=== PATIENT | female | born 2000 ===

== ENCOUNTER 2020-11-02 15:43 | Observation (INO) ==
[2020-11-02] MEDS ORDERED: ACETAMINOPHEN 325 MG TABLET PO PRN (16:30)
[2020-11-02] MEDS ORDERED: ONDANSETRON 4 MG/2 ML VIAL IV PRN (16:30)
[2020-11-02] MEDS ORDERED: LEVOFLOXACIN INJ 750 MG in PREMIX 1 EACH IV STA (16:39)
[2020-11-02] MEDS ORDERED: LEVOFLOXACIN INJ 150 ML IV ONE (16:45)
[2020-11-02] MEDS: LEVOFLOXACIN INJ 750 MG in PREMIX 1 EACH IV SCH ×2 (16:50→16:53)
[2020-11-02] MEDS: LACTATED RINGERS 1,000 ML IV SCH (18:25)
[2020-11-02 18:55] LABS: Basophils % 0.3 % (0.0-0.8); Eosinophils % 0.4 % (0.00-10.9); Hematocrit 38.2 VOL% (35.7-47.0); Hemoglobin 12.1 GM/DL (12.0-16.0); Immature Granulocytes % 0.4 %; Immature Granulocytes Absolute 0.04 #; Lymphocytes # 1.8 10*3/uL (1.4-4.0); Mean Corpuscular HGB Conc 31.7 GM/DL (32-36); Mean Corpuscular Volume 85.5 FL (87-102); Monocytes % 7.8 % (1.7-12.7); Neutrophils % 74.1 % (38.7-73.9); Platelet Count 385 T/CUMM (130-400); Red Blood Count 4.47 MC/CUMM (3.8-5.5); Red Cell Distribution Width 13.1 % (9.3-17.3); White Blood Count 10.3 T/CUMM (4-12)
[2020-11-03] MEDS: LACTATED RINGERS 1,000 ML IV SCH ×4 (01:12→22:22)
[2020-11-03 06:25] LABS: Albumin 2.6 G/DL (3.4-5.0); Bilirubin,Total 0.9 MG/DL (0.2-1.0); Calcium 8.7 MG/DL (8.5-10.1); Osmolality,Calculated 271.7 MOS/KG (273-304); Potassium 4.1 MMOL/L (3.5-5.1)
[2020-11-03] MEDS ORDERED: INDOCYANINE GREEN 25 MG VIAL IV ONE (07:09)
[2020-11-03] MEDS ORDERED: SCOPOLAMINE 1.5 MG PATCH TRANSDERM ONE (07:51)
[2020-11-03] MEDS ORDERED: ACETAMINOPHEN 500 MG TABLET PO ONE (07:51)
[2020-11-03] MEDS ORDERED: FAMOTIDINE 20 MG TABLET PO ONE (07:53)
[2020-11-03] MEDS: PANTOPRAZOLE 40 MG TABLET PO SCH (08:17)
[2020-11-03] MEDS ORDERED: MIDAZOLAM 2 MG/2 ML VIAL ONE (08:29)
[2020-11-03] MEDS ORDERED: propofoL 200 MG/20 ML VIAL IV ONE (08:29)
[2020-11-03] MEDS ORDERED: SEVOFLURANE 1 UNIT/15 MINUTE INH ONE (08:29)
[2020-11-03] MEDS ORDERED: ROCURONIUM 50 MG/5 ML VIAL IV ONE (08:29)
[2020-11-03] MEDS ORDERED: LIDOCAINE 2% 5 ML VIAL ONE (08:29)
[2020-11-03] MEDS ORDERED: fentaNYL 100 MCG/2 ML VIAL ONE ×2 (08:29→10:32)
[2020-11-03] MEDS ORDERED: BUPIVACAINE MPF 0.25% 30 ML VIAL ONE (09:14)
[2020-11-03] MEDS ORDERED: TISSUE ADHESIVE 1 EACH APPLICATOR TOP ONE (09:14)
[2020-11-03] MEDS ORDERED: LIDOCAINE 1%/EPI INJ 20 ML VIAL ONE (09:14)
[2020-11-03] MEDS ORDERED: ONDANSETRON 4 MG/2 ML VIAL ONE (10:05)
[2020-11-03] MEDS ORDERED: KETOROLAC 30 MG/1 ML VIAL ONE (10:05)
[2020-11-03] MEDS ORDERED: GLYCOPYRROLATE 0.4 MG/2 ML VIAL ONE (10:25)
[2020-11-03] MEDS ORDERED: NEOSTIGMINE 10 MG/10 ML VIAL ONE (10:25)
[2020-11-03] MEDS ORDERED: LACTATED RINGERS 1,000 ML IV ONE (10:37)
[2020-11-03] MEDS ORDERED: MEPERIDINE 25 MG/1 ML VIAL IV PRN (11:33)
[2020-11-03] MEDS ORDERED: ONDANSETRON 4 MG/2 ML VIAL IV PRN (11:33)
[2020-11-03] MEDS ORDERED: HYDROmorphone 2 MG/1 ML VIAL IV PRN (11:33)
[2020-11-03] MEDS: LEVOFLOXACIN INJ 750 MG in PREMIX 1 EACH IV SCH (16:27)
[2020-11-04] MEDS: LACTATED RINGERS 1,000 ML IV SCH ×2 (05:00→11:49)
[2020-11-04 07:19] VITALS: BP 114/66
[2020-11-04] MEDS: PANTOPRAZOLE 40 MG TABLET PO SCH (08:23)
== END 2020-11-04 11:05 | disposition home or self-care (01) ==
LOC: N.ED 15:43 → N.EDINP 15:43 → N.3E 17:49
PROVIDERS: ADMIT Surgery; ATTEND Surgery